=== PATIENT | female | born 1965 | race Caucasian/White ===

== ENCOUNTER 2024-03-15 23:34 | Emergency (ER) | payer OTHER, SELFPAY ==
[2024-03-15 23:44] VITALS: BP 147/81; PULSE 76; RESP 16; TEMP 36.4; O2SAT 99; BMI 26.6
--- NOTE | 2024-03-15 23:47 | CRLHL7_ITS ---
For Patients: As a result of the Century Cures Act, medical imaging exams and procedure reports are released immediately into your electronic medical record. You may view this report before your referring provider. If you have questions, please contact your health care provider. INDICATION: Fall. TECHNIQUE: Left knee 3 view. COMPARISON: None. FINDINGS: No acute fracture or dislocation. Joint spaces are preserved. Trace knee joint effusion. Diffuse soft tissue swelling. IMPRESSION: Soft tissue swelling and trace knee joint effusion. No fracture identified. Dictated by Willow Jefferson MD @ 03/16/2024 12:08:37 AM (Electronically Signed)
--- NOTE | 2024-03-15 23:48 | ED_ITS ---
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 She twisted her left knee and scrapes both the front of her left knee as well as the anterior aspect of her right pérez. Patient has no significant bony pain on the right but does have a small abrasion. The knee on the left is mildly swollen with an abrasion in the inferior aspect. Patient can bear weight without any difficulty. She feels like the knee is quite stiff. Pain is moderate. No other injuries the patient did not completely fall. Related Data Home Medications ?Medication ?Instructions ?Recorded ?Confirmed levothyroxine .ROUTE 03/15/24 Allergies Allergy/AdvReac Type Severity Reaction Status Date / Time Sulfa (Sulfonamide Allergy Verified 03/15/24 23:47 Antibiotics) Review of Systems Status of ROS: Reports: 10 or more systems reviewed and unremarkable except as noted in History and below Exam Narrative: Exam Narrative: EXAM GENERAL: Patient appears comfortable and well. EYES: No scleral icterus. ENT: Tympanic membranes and oropharynx normal. THYROID: no thyroid nodules or thyromegaly. LYMPH: No supraclavicular or cervical lymphadenopathy. SKIN: The skin abrasions as noted above EXT: Left knee as described above HEART: Regular rate and rhythm with no murmurs, rubs, or gallops. LUNGS: Clear to auscultation bilaterally with no crackles or wheezes. ABD: Soft, non tender, non distended. PSYCH: Good eye contact, speech is not pressured. Const: Vital Signs, click to edit/add: Vital Signs - 24 hr 03/15/24 23:44 Temperature 97.6 F Pulse Rate [Pulse Oximeter] 76 Respiratory Rate 16 Blood Pressure [Ri ght Upper Arm] 147/81 H Pulse Oximetry 99 Oxygen Delivery Me thod Room Air Course Course ED Course: Patient seen and examined. X-ray of the left knee pending. Vital Signs Vital signs: Initial Vital Signs Temperature 97.6 F 03/15/24 23:44 Temperature Source Temporal Artery Scan 03/15/24 23:44 Pulse Rate 76 03/15/24 23:44 Respiratory Rate 16 03/15/24 23:44 Blood Pressure 147/81 H 03/15/24 23:44 Blood Pressure Mean 103 03/15/24 23:44 Blood Pressure Position Sitting 03/15/24 23:44 Pulse Oximetry 99 03/15/24 23:44 Oxygen Delivery Method Room Air 03/15/24 23:44 Vital Signs Temperature 97.6 F 03/15/24 23:44 Pulse Rate 76 03/15/24 23:44 Respiratory Rate 16 03/15/24 23:44 Blood Pressure 147/81 H 03/15/24 23:44 Pulse Oximetry 99 03/15/24 23:44 Oxygen Delivery Method Room Air 03/15/24 23:44 Temperature 97.6 F 03/15/24 23:44 Pulse Rate 76 03/15/24 23:44 Respiratory Rate 16 03/15/24 23:44 Blood Pressure 147/81 H 03/15/24 23:44 Pulse Oximetry 99 03/15/24 23:44 Oxygen Delivery Method Room Air 03/15/24 23:44 MDM - Extremity Injury (Lower) MDM Narrative Medical decision making narrative: Patient is a 58-year-old woman who hit her left knee on the counter at work using drawer is a step. She has a pain over the left anterior knee but has normal x-rays. She has 2 small abrasions. She is able to bear weight without any difficulty. At this time I suspect she has sprain of her left knee and I did recommend rest ice elevation and Tylenol Motrin. Excuse her from work for the next 2 days and recommended primary care follow-up if not better in 3-5 days. Discharge Plan Discharge Clinical Impression: Injury of knee, left Patient Disposition: Home, Self-Care Condition: Stable Instructions: Knee Sprain (ED) Additional Instructions: Ice Tylenol Motrin Rest Follow-up with your doctor as needed. Activity Level: No Restrictions Discharge Diet: Regular Prescriptions: No Action levothyroxine .ROUTE Stand Alone Forms: [facility] Info Instructions
--- OUTSIDE RECORDS SUMMARY | 2024-03-16 00:09 | XMS_ITS | Clinical Summary ---
Author Organization [facility] Address [place], [place] [address] Care Team Providers Care Internal Audit Consultant Name Role Phone Clinic, No Pcp Or Primary Care Provider Unavaila ble Allergies Active Allergy Reactions Criticality Noted Date Comments Sulfa (Sulfonamide Antibiotics) Flushing 02/26 Sulfa (Sulfonamide Antibiotics) Hives 05/28 Medications Medication Sig Dispensed Refills Start Date End Date Status levothyroxine (SYNTHROID) 112 mcg tablet Take 112 mcg by mouth once daily. 09/30/2023 Active PROGESTERONE, BULK, MISC As directed. Active TESTOSTERONE, BULK, MISC As directed. Active fluticasone propion-salmeteroL (Advair Diskus) 250-50 mcg/Dose diskus inhalerIndications:Whe ezing Inhale 1 Puff by mouth two times daily. 60 Each 2 12/13/2023 Active inhalational spacing deviceIndications:Whee zing For home use. 1 Each 12/13/2023 Active Active Problems Problem Noted Date Diagnosed Date Pap smear for cervical cancer screening 01/12/20 24 Overview (01/12/2024): 12/2023 NIL/HPV negative. Plan: Pap/HPV due 12/2028. Hypothyroidism (acquired) 12/13/2023 Encounters Date Type Department Care Team Description 01/30/2024 9:40 AM CDT Office Visit [facility] [address] [place] [address] Kulwant Reyes MD Allergies (Consult-chronic cough, wheezing, referred by Dr Linton ) 01/30/2024 Travel 01/03/2024 1:00 PM CDT Office Visit [facility] [address] [place] [address] Emerita Wyman MD Solid Waste Facility Supervisor Exam; Immunization/Injecti on 01/03/2024 Travel 12/15/2023 Telephone [facility] [address] [place] [address] Stephenie Linton MD Results from Last 3 Months Immunizations Name Administration Dates Next Due Tdap 01/03/2024 Social History Tobacco Use Types Packs/Day Years Used Date Smoking Tobacco: Never Smokeless Tobacco: Never Tobacco Cessation:Counseling Given: Yes Comments:no vaping 06.21.19 Alcohol Use Standard Drinks/Week Comments Never 0 (1 standard drink = 0.6 oz pur e alcohol) PHQ-2 Answer Date Recorded PHQ-2 TOTAL SCORE 0 12/13/2023 Social Connections Answer Date Recorded Frequency of Communication with Friends and Fami ly 0 12/13/2023 Financial Resource Strain Answer Date R ecorded Difficulty of Paying Living Expenses 3 12/13/2023 Difficulty of Paying Living Expenses Not on file 12/13/2023 Food Insecurity Answer Date Recorded Worried About Running Out of Food in the Last Ye ar 1 12/13/2023 Transportation Needs Answer Date Record ed Lack of Transportation (Medical) 1 12/13/2023 Housing Stability Answer Date Recorded Unable to Pay for Housing in the Last Year 1 12/13/2023 Sex and Gender Information Value Date Recorded Sex Assigned at Not on file Gender Identity Not on file Sexual Orientation Not on file Obstetrics History Last Filed Vital Signs Vital Sign Reading Time Taken Comments Blood Pressure 110/75 01/30/2024 9:52 AM CDT tow er Pulse 52 01/30/2024 9:52 AM CDT Temperature 36.6 ??C (97.8 ??F) 12/06/2023 8:44 PM CD T Respiratory Rate 18 12/06/2023 8:44 PM CDT Oxygen Saturation 98% 01/30/2024 9:52 AM CDT Inhaled Oxygen Concentration - - Weight 78 kg (172 lb) 01/30/2024 9:52 AM CDT Height 166.6 cm (5' 5.59) 01/30/2024 9:52 AM CD T Body Mass Index 28.11 01/30/2024 9:52 AM CDT Plan of Treatment Health Maintenance Due Date Last Done Comments Colonoscopy through age 75 10/07/2011 Lipids for age 45-75 10/07/2011 Mammogram for age 45-75 10/07/2011 Zoster (shingles) series for age 50+ (1 of 2) 2016 COVID-19 vaccine series (3 2022- season) 2024 10/17/2020, 09/26/2020 Influenza for age 50-64 02/26/2024 Depression screening for age 12+ 12/14/2024 12/15/2023, 12/14/2023, 12/13/2023 BMI (ht and wt on same day) for age 18+ 01/29/2025 01/30/2024, 01/03/2024, 12/13/2023 Pap test for age 21-65 01/02/2029 , 01/03/2024 Tetanus booster 01/02/2034 01/03/2024 HIV for age 15-65 Completed 01/03/2024 Hepatitis C screening for ag e 18-79 Completed 01/03/2024 Tdap Completed 01/03/2024 Pneumococcal series for age 6-64 Aged Out No longer eligible b ased on patient's age to complete this topic Procedures Procedure Name Priority Date/Time Associated Diagnosis Comments LA PERCUTANEOUS TESTS W/ALLERGENIC EXTRACTS Routine 01/30/2024 12:00 AM CDT Allergic rhinitis, unspecified seasonality, unspecified trigger Allergic cough ANTI HCV Routine 01/03/2024 2:08 PM CDT Routine health maintenance ANTI HIV 1/2 Routine 01/03/2024 2:08 PM CDT Routine health maintenance CHEMICAL BLENDER THIN PREP PAP SCREEN IMAGED Routine 01/03/2024 1:15 PM CDT Cervical cancer screening HPV HIGH RISK Routine 01/03/2024 1:15 PM CDT Cervical cancer screening from Last 3 Months Results * LA PERCUTANEOUS TESTS W/ALLERGENIC EXTRACTS (01/30/2024 12:00 AM CDT) Kulwant Reyes MD [facility] - [facility]OLOG[facility] * ANTI HCV (01/03/2024 2:08 PM CDT) Pathologist [facility] HEPATITIS C ANTIBODY Non-Reacti ve Non-React annie 01/03/2024 7:40 PM CDT [facility] Comment:Please note, per www .CDC.gov: If a patient is known to be at high risk of HCV infection, or is symptomatic, and the physician's suspicion of HCV infection is high, HCV RNA testing is often employed and is of diagnostic value, even after an initial negative anti-HCV test result. Blood BLOOD SPECIMEN / Unknown Venipuncture / Unknown 01/03/2024 2:08 PM CDT 01/03/2024 2:08 PM CDT Emerita Wyman MD SEND OUTS Performing Organization Address City/[facility]/ZIP Co de Phone Number [facility] [address] [place] [address] * ANTI HIV 1/2 (01/03/2024 2:08 PM CDT) Pathologist [facility] HIV-1/HIV-2 SCREEN Non-Reacti ve Non-Reacti ve 01/03/2024 7:36 PM CDT [facility] Comment:HIV-1 p24 and HIV-1/ HIV-2 Ab Not Detected. Blood BLOOD SPECIMEN / Unknown Venipuncture / Unknown 01/03/2024 2:08 PM CDT 01/03/2024 2:08 PM CDT Emerita Wyman MD SEND OUTS [facility] [address] [place] [address], * CHEMICAL BLENDER THIN PREP PAP SCREEN IMAGED (01/03/2024 1:15 PM CDT) Pathologist [facility] Case Report Gynecologic Cytology Report ? Case: [id number] ? Authorizing Provider: ??Emerita Wyman MD ?Collected: ? 01/03/2024 1315 ? Ordering Location: ? [facility] Received: ?01/03/2024 1525 ? First Screen: ?Georgie, Zulay ? Rescreen: ?Krista Hurst ? Specimen: ?CHEMICAL BLENDER ThinPrep Vial Screening, Cervical ? 01/12/2024 7:21 AM [facility] INTERPRETATION/ RESULT NEGATIVE FOR INTRAEPITHELIAL LESION OR MALIGNANCY (NIL) (none) 01/12/2024 7:21 AM [facility] IMEN ADEQUACY Satisfactory for evaluation Endocervical cells cannot be evaluated due to severe atrophy Scant cellularity 01/12/2024 7:21 AM T [facility] HPV REQUEST HPV and PAP 01/12/2024 7:21 AM T [facility] Date of LMP unknown 01/12/2024 7:21 AM CDT [facility] Last Pap Date 7 years ago per pt. 01/12/2024 7:21 AM CDT [facility] Last Pap Result NIL 7:21 AM CDT [facility] Abnormal Pap or Sunspot Bx in last 5 years No 01/12/2024 7:21 AM CDT [facility] Menstrual Status Postmenopausal 01/12/2024 7:21 AM CDT [facility] Sunspot Bx Done Today No 01/12/2024 7:21 AM CDT [facility] Additional Information None given 01/12/2024 7:21 AM CDT [facility] Comment: Cytology is screened at [facility] - [address], [place] [address] and [facility] - [address] [place] [address] and [facility] - [address] [place] [address] Interpreted at [facility] - [address], [place] [address] Automated Review Successful 01/12/2024 7:21 AM CDT [facility] Comment:Specimen processed s uccessfully by automated manufacturing cost estimator device, ThinPrep Imaging System, [employer] ANCILLARY TESTING CHEMICAL BLENDER HPV Ordered, Please see separate report 01/12/2024 7:21 AM CDT [facility] Note The pap test is a screening technique, not a diagnostic procedure. It is used primarily to screen for squamous cancers and precursor lesions. Published studies have shown that it is subject to both false negative and false positive results. The pap test should not be used as the sole means to diagnose or exclude pre-malignant and malignant lesions. 01/12/2024 7:21 AM CDT [facility] Other (Cervical) Non-Blood / Unknown 01/03/2024 1:15 PM CDT 01/03/2024 3:25 PM CDT Emerita Wyman MD PATHOLOGY/CYTOLOGY Performing Organization Address [facility]/ZIP Co de Phone Number [facility] [address] [place] [id number], * HPV HIGH RISK (01/03/2024 1:15 PM CDT) TYPE 16 Negative Negative 01/06/2024 11:43 AM CDT [facility] TYPE 18 Negative Negative 01/06/2024 11:43 AM CDT [facility] OTHER HIGH RISK TYPES Negative Negative 01/06/2024 11:43 AM CDT [facility] Other (Cervical) Non-Blood / Unknown 01/03/2024 1:15 PM CDT 01/05/2024 8:53 AM CDT Narrative [facility] - 01/06/2024 11:43 AM CDT HPV types 16, 18, 31, 33, 35, 39, 45, 51, 52, 56, 58, 59, 66 and 68 DNA were undetectable or below the pre-set threshold. Methodology: Michael Jan 4800 HPV Test Emerita Wyman MD MICROBIOLOGY Performing Organization Address [facility] Co de Phone Number [facility] [address] [place] [address], from Last 3 Months Care Teams Internal Audit Consultant Relationship Specialty Start Date End Date Clinic, No Pcp Or . PCP - General 12/06/23
== END 2024-03-16 00:27 | disposition home or self-care (01) ==
LOC: ED 03-16 00:08
PROVIDERS: Emergency Provider Internal Medicine
DX: S89.92XA Unspecified injury of left lower leg, initial encounter (principal)
CPT/HCPCS: 73562; 99283